=== PATIENT | male | born 1980 | race Caucasian/White ===

== ENCOUNTER 2022-04-09 08:11 | Emergency (ER) | payer BC, SELFPAY ==
[2022-04-09 08:26] VITALS: BP 138/100; PULSE 108; RESP 16; TEMP 37; O2SAT 97
--- NOTE | 2022-04-09 08:36 | ED.URI ---
HPI - URI/Sore Throat General Chief Complaint: Upper Respiratory Infection Stated Complaint: sore throat Time Seen by Provider: 04/09/22 08:37 Source: patient and RN notes reviewed Mode of arrival: ambulatory Limitations: no limitations History of Present Illness HPI Narrative: 41-year-old male presented for complaint of frequent productive cough for 1 week, and he endorses a ?tickle in his throat. ? He denies associated chest pain, shortness of breath, wheezing, nausea, vomiting, diarrhea, fevers chills. He is taking Mucinex for symptoms. He does vape. Denies sick contacts. MD elicited complaint: cough Related Data Home Medications Medication Instructions Recorded Confirmed amlodipine 10 mg tablet 10 mg PO DAILY 04/09/22 04/09/22 lisinopril 10 mg tablet 10 mg PO DAILY 04/09/22 04/09/22 Allergies Allergy/AdvReac Type Severity Reaction Status Date / Time No Known Allergies Allergy Verified 04/09/22 08:30 Review of Systems Review of Systems: CONSTITUTIONAL: Denies malaise, chills, sweats, fever EYES: Denies visual changes, redness, or discharge ENT: Denies rhinorrhea, congestion, sinus pain, otalgia, sore throat CARDIOVASCULAR: Denies chest pain, palpitations, edema RESPIRATORY: Reports cough Denies dyspnea GASTROINTESTINAL: Denies abdominal pain, nausea, vomiting, diarrhea SKIN: Denies rash or itching MUSCULOSKELETAL: Denies myalgia NEUROLOGIC: Denies headache Exam Narrative: GENERAL: well-appearing, nontoxic no acute distress. HEAD: Normocephalic EYES: PERRLA, conjunctivae clear ENT: Mucous membranes moist. TMs pearly luque with dull light reflex bilaterally; no tragal tenderness. Oropharynx normal without lesions or exudate, no drooling, no hoarseness, no trismus, uvula midline. CHEST: Clear to auscultation, breath sounds equal. No wheezing, rhonchi, rales, or stridor. No respiratory distress, speaks in full sentences. HEART: irregular rhythm. SKIN: Warm, dry, no rash. NEURO: Alert and oriented x3. PSYCH: Normal mood and affect Course Course Emergency Course: Patient is aware of diagnosis, understands and agrees to treatment plan. Anticipatory guidance given. Portions of this record may have been created with voice recognition software Level of Care: Express Care Visit Vital Signs Vital signs: Vital Signs Temperature 98.6 F 04/09/22 08:26 Pulse Rate 108 H 04/09/22 08:26 Respiratory Rate 16 04/09/22 08:26 Blood Pressure 138/100 H 04/09/22 08:26 Pulse Oximetry 97 04/09/22 08:26 Oxygen Delivery Room Air 04/09/22 08:26 Temperature 98.6 F 04/09/22 08:26 Pulse Rate 108 H 04/09/22 08:26 Respiratory Rate 16 04/09/22 08:26 Blood Pressure 138/100 H 04/09/22 08:26 Pulse Oximetry 97 04/09/22 08:26 Oxygen Delivery Room Air 04/09/22 08:26 reviewed Transfer Transfered to: [place] Transportation: Other (private vehicle) Transfer rationale: Pt is agreeable to transfer. Requests transfer to [facility] via private vehicle. Risks of transportation reviewed with pt including injury, worsening of condition and . v/u. Report called to hospital, spoke with Dr Gold, accepting physician. Pt is in stable condition at time of transfer. Advised to remain NPO and go directly to the hospital. v/u. MDM - URI/Sore Throat MDM Narrative Medical decision making narrative: EKG ordered for irregular HR on exam. EKG shows afib RVR, Reviewed with pt, denies history of this condition. Discussed the risks of this condition at length. Advised ER transfer. Adamantly refuses to contact someone else to drive or utilize EMS, pt will only drive himself. Again aware of risks. Differential Diagnosis Differential diagnosis: Likely upper respiratory infection, sinusitis, viral infection, bronchitis and other (cardiac arrythmia, atrial fib, atrial flutter) ECG Data EKG #1: Attestation: I personally reviewed and interpreted this ECG as follows: (Afib 166, [place] - , QRS 98, QT/QTc 259
--- NOTE | 2022-04-09 08:51 | ECG_ITS ---
Measurements Intervals Tony Rate: 166 P: MD: 0 QRS: 29 QRSD: 98 T: 54 QT: 259 QTc: 431 Interpretive Statements ATRIAL FIBRILLATION WITH RAPID VENTRICULAR RESPONSE ABNORMAL ECG NO PREVIOUS ECG AVAILABLE FOR COMPARISON Electronically Signed On 04-09-2022 12:40:20 CERTIFIED DIALYSIS TECHNICIAN by Wilber Aldana D.O.
== END 2022-04-09 09:05 | disposition short-term general hospital (02) ==
PROVIDERS: Emergency Provider Nurse Practitioner Family
DX: I48.91 Unspecified atrial fibrillation (principal)
CPT/HCPCS: 93005; 99213; G0463

== ENCOUNTER 2022-04-09 09:27 | Emergency (ER) | payer BC, SELFPAY ==
[2022-04-09] VITALS (16 sets, daily range): BP systolic 120–150; BP diastolic 57–112; PULSE 123–190; RESP 12–22; TEMP 36.6; O2SAT 95–98
--- NOTE | ~2022-04-09 | XR_ITS ---
EXAMINATION: XR chest 2V DATE: 04/09/2022 10:29 INDICATION: Chest pain. TECHNIQUE: Frontal and lateral views of the chest were obtained. COMPARISON: None. FINDINGS: A calcified right lung nodule is consistent with old granulomatous disease. No pleural effu lisa or pneumothorax. The heart size is normal. IMPRESSION: 1. No acute cardiopulmonary disease. Reviewed, dictated and finalized at location A. PROCESS ASSISTANT HEAD MILLER
--- NOTE | 2022-04-09 09:29 | ECG_ITS ---
Measurements Intervals [place] Rate: 178 P: MT: 0 QRS: 15 QRSD: 90 T: 54 QT: 248 QTc: 427 Interpretive Statements ATRIAL FIBRILLATION WITH RAPID VENTRICULAR RESPONSE ABNORMAL ECG COMPARED TO ECG 04/09/2022 08:51:09 NO SIGNIFICANT CHANGES Electronically Signed On 04-09-2022 12:42:39 ALUM OPERATOR by Wilber Aldana D.O.
[2022-04-09 09:48] LABS: Basophils Absolute Auto 0.1 K/mm3 (0.0-0.1); Basophils Percent Auto 0.7 % (0.2-1.2); Eosinophils Absolute Auto 0.2 K/mm3 (0-0.3); Hemoglobin 16.3 g/dL (14.0-18.0); Immature Granulocyte Absolute 0.17 K/mm3 (0.00-0.031); Immature Granulocyte Percent A 1.5 % (0-0.5); Lymphocytes Absolute Auto 3.09 K/mm3 (0.9-3.2); Lymphocytes Percent Auto 26.9 % (18.3-44.2); Mean Corpuscular HGB Conc 32.6 g/dl (32-36); Mean Corpuscular Hemoglobin 30.4 pg (26-34); Mean Corpuscular Volume 93.3 fl (80-100); Mean Platelet Volume 8.6 fl (7.4-10.4); Monocytes Absolute Auto 1.2 K/mm3 (0.1-0.6); Monocytes Percent Auto 10.2 % (2.6-8.5); Neutrophils Absolute Auto 6.7 K/mm3 (1.3-6.7); Neutrophils Percent Auto 58.7 % (45.5-73.1); Platelet Count Result 387 k/mm3 (150-375); Red Blood Count 5.36 M/mm3 (4.6-6.20); Red Cell Distribution Width 13.2 % (11.5-14.5); White Blood Count 11.5 K/mm3 (4.5-10.0)
[2022-04-09 10:00] LABS: Alanine Aminotransferase 38 U/L (6-50); Albumin Level 3.9 g/dL (3.5-5.1); Alkaline Phosphatase 92 U/L (38-126); Anion Gap 6 mmol/L (8-16); Aspartate Amino Transferase 47 U/L (17-59); Bilirubin,Total 0.4 mg/dL (0.2-1.3); Blood Urea Nitrogen 13 mg/dL (9-20); Calcium 8.9 mg/dL (8.4-10.2); Carbon Dioxide 26 mmol/L (22-30); Chloride 104 mmol/L (98-107); Estimated CRCL calculation 79 ml/min; Estimated Glomerular Filt Rate > 60; Glucose 147 mg/dL (65-110); Lipase 156 U/L (23-300); Potassium 3.9 mmol/L (3.4-5.0); Sodium 136 mmol/L (137-145)
[2022-04-09 10:04] LABS: Prothrombin Time 12.5 Seconds (11.1-14.7)
[2022-04-09 10:05] LABS: Partial Thromboplastin Time 35.4 SECONDS (22.3-36.8)
[2022-04-09] MEDS: dilTIAZem HCl INJ 25 MG/5 ML VIAL 10 MG IV PUSH ×2 (10:08→11:00)
--- NOTE | 2022-04-09 10:09 | ED.GENADULT ---
HPI - General Adult General Chief complaint: Arrhythmia/Palpitations Stated complaint: from urgent care, new onset A-fib RVR Time Seen by Provider: 04/09/22 10:03 Source: patient and EMS Limitations: no limitations History of Present Illness HPI narrative: 41 years old white female referred to our emergency room by ambulance from urgent care because of A. fib with RVR. Patient went to urgent care today because of coughing for less than 1 week. Patient had similar symptoms, his son have similar symptoms, patient did not get tested for COVID or the flu. Patient had history of COVID infection twice in his lifetime, did not get vaccinated yet. Patient denies any palpitation or shortness of breath or chest pain. History of hypertension, hyperlipidemia. He drinks alcohol daily, use marijuana daily. Patient on amlodipine and lisinopril which he forgets to take more than he remembers to take it. He denies any fever, chills, shortness of breath or chest pain Related Data Home Medications Medication Instructions Recorded Confirmed amlodipine 10 mg tablet 10 mg PO DAILY 04/09/22 04/09/22 lisinopril 10 mg tablet 10 mg PO DAILY 04/09/22 04/09/22 Allergies Allergy/AdvReac Type Severity Reaction Status Date / Time No Known Allergies Allergy Verified 04/09/22 10:02 Review of Systems Review of Systems: All systems reviewed & are unremarkable except as noted in HPI and below Exam Narrative: General appearance: Well-developed, well-nourished Skin: Normal color Head: Normocephalic, nontraumatic Eyes: Clear conjunctiva ENT: Oropharynx normal, ears normal, nose normal Neck: Supple, nontender Chest and respiratory: Airway patent, no respiratory distress, no accessory muscle use Heart: Tachycardia, irregular irregularity Abdomen: Soft, nontender, no organomegaly, quiet bowel sounds Vascular: Normal peripheral pulses, normal capillary refill. Musculoskeletal: Normal range of motion, nontender back Neurologic: Alert and oriented ?3, FERMENTER CHAMPAGNE is normal as tested, no gross motor deficit Course Reevaluation(s) Reevaluation #1: Patient declined to be hospitalized, he is telling me that his heart rate usually runs in the 140s and all his family members have similar condition. I declare that I have personally explained to the patient the risks and consequences involved in leaving this facility at this time. the benefits of continued treatment and/or hospitalization. And the alternatives. If any. to continued treatment and/or hospitalization. if applicable.I have not identified any psychosis, drugs, mental illness, or medical illness that alters decision-making capacity (reasoning abilities ). Date: 04/09/22 Time: 14:36 Consultations Consultation #1: Dr. Leroy Date: 04/09/22 Time: 13:38 Vital Signs Vital signs: Vital Signs Temperature 36.6 C 04/09/22 09:35 Pulse Rate 123 H 04/09/22 09:35 Respiratory Rate 16 04/09/22 09:35 Blood Pressure 135/77 04/09/22 09:35 Pulse Oximetry 98 04/09/22 09:35 Oxygen Delivery Room Air 04/09/22 09:35 Temperature 36.6 C 04/09/22 09:35 Pulse Rate 124 H 04/09/22 15:24 Respiratory Rate 20 04/09/22 15:24 Blood Pressure 135/94 H 04/09/22 15:24 Pulse Oximetry 95 04/09/22 15:24 Oxygen Delivery Room Air 04/09/22 10:00 Medical Decision Making Vital Signs Vital Signs: Vital Signs Temperature 36.6 C 04/09/22 09:35 Pulse Rate 123 H 04/09/22 09:35 Respiratory Rate 16 04/09/22 09:35 Blood Pressure 135/77 04/09/22 09:35 Pulse Oximetry 98 04/09/22 09:35 Oxygen Delivery Room Air 04/09/22 09:35 Temperature 36.6 C 04/09/22 09:35 Pulse Rate 124 H 04/09/22 15:24 Res
[2022-04-09 10:11] LABS: Troponin I < 0.012 ng/mL (0.000-0.034)
[2022-04-09] MEDS: dilTIAZem 100 MG/100 ML 100 MG/100 ML BAG IV CONT (10:15)
[2022-04-09] MEDS: ENOXAPARIN 100 MG/ML SYRINGE SUB-Q (12:16)
[2022-04-09 12:44] LABS: Influenza A QL RT-PCR Negative (Negative); Influenza B QL RT-PCR Negative (Negative); SARS-CoV-2 RNA PCR Negative
[2022-04-09 13:10] LABS: Troponin I < 0.012 ng/mL (0.000-0.034)
--- NOTE | 2022-04-09 15:22 | PC.NURSE ---
Pt states he is unwilling to stay for further observation and treatment. Discussed options of leaving AMA if pt desires to leave. Pt would like to leave AMA
== END 2022-04-09 15:26 | disposition left against medical advice (07) ==
PROVIDERS: Emergency Provider Emergency Medicine; PCP Physician Assistant
DX: I48.91 Unspecified atrial fibrillation (principal); D72.829 Elevated white blood cell count, unspecified; Z20.822 Contact with and (suspected) exposure to COVID-19; I10 Essential (primary) hypertension; E78.5 Hyperlipidemia, unspecified
CPT/HCPCS: 36415; 71046; 80053; 83690; 84443; 84484; 85025; 85610; 85730; 87636; 93005; 96372; 96374; 96376; 99284; J1650